=== PATIENT | male | born 1965 ===

== ENCOUNTER 2025-01-08 10:45 | Day surgery (SDC) | payer OTHER ==
[~2025-01-08] VITALS: Ht 182.9 cm; Wt 89.6 kg
[~2025-01-08 10:45] MED LIST: ALBU90OI INH; AMLO10 PO; ATOR80 PO; BUPRENORPHINE HC2 MG SL; COLCRYS0.6 M1 PO; Cyclobenzaprine5 MG PO; FARXIGA10 MG PO; Flonase 0.05% N16 GM; GABA300 PO; GLIP10 PO; GLUCOPHAGE1000 M4 PO; HYDCHL25 PO; HYDPAM50 PO; LOSA50 PO; METO100ER PO; MIRALAX17 GM PO; SILD50TA PO; TRAZ100 PO; Voltaren100 GM; ZYRTEC10 M2 PO
[2025-01-08 11:38] LABS: BASOPHILS ABSOLUTE AUTO 0.07 K/mm3 (0.00-0.23); BASOPHILS PERCENT AUTO 1 % (0-2); EOSINOPHILS ABSOLUTE AUTO 0.46 K/mm3 (0.00-0.68); EOSINOPHILS PERCENT AUTO 4 % (0-6); Hematocrit 50.8 % (37.0-53.0); Hemoglobin 17.3 g/dL (13.5-17.5); IMMATURE GRAN ABSOLUTE AUTO 0.04 K/mm3 (0.00-0.10); IMMATURE GRAN PERCENT AUTO 0 % (0-1); LYMPHOCYTES ABSOLUTE AUTO 0.91 K/mm3 (0.84-5.20); LYMPHOCYTES PERCENT AUTO 9 % (21-46); MONOCYTES ABSOLUTE AUTO 0.74 K/mm3 (0.16-1.47); MONOCYTES PERCENT AUTO 7 % (4-13); Mean Corpuscular HGB 29.9 pg (26.0-34.0); Mean Corpuscular HGB Conc 34.1 g/dL (31.5-36.5); Mean Corpuscular Volume 88 fL (80-100); Mean Platelet Volume 9.7 fL (9.1-12.4); NEUTROPHILS ABSOLUTE AUTO 8.12 K/mm3 (1.96-9.15); NEUTROPHILS PERCENT AUTO 79 % (41-73); Platelet Count 144 K/mm3 (150-400); RDW Coefficient Variation 13.6 % (11.7-14.2); RDW Standard Deviation 43.8 fL (35.1-46.3); Red Blood Cell Count 5.79 M/mm3 (4.30-5.90); White Blood Cell Count 10.34 K/mm3 (4.00-11.30)
[2025-01-08 11:53] LABS: International Normalized Ratio 1.02; Prothrombin Time Results 10.9 Sec (9.7-11.5)
[2025-01-08] MEDS ORDERED: NS 1,000 ML IV ONE ×2 (12:00→12:07)
[2025-01-08] MEDS ORDERED: Heparin Sodium 1000 Units/ML 10ML MDV ONE ×2 (12:00→12:07)
[2025-01-08 12:01] LABS: Bun/Creatinine Ratio 9.3 (12.0-20.0); Calcium, Blood 8.7 mg/dL (8.5-10.1); Creatinine, Blood 0.75 mg/dL (0.60-1.20); Potassium, Blood 3.5 mmol/L (3.5-5.5)
[2025-01-08] MEDS ORDERED: NS 250 ML IV ONE (12:01)
[2025-01-08] MEDS ORDERED: Nitroglycerin 2 MG/20 ML BTL ONE (12:01)
[2025-01-08] MEDS ORDERED: NS 100 ML IV ONE (12:01)
[2025-01-08] MEDS ORDERED: Verapamil HCL 2.5 MG/ML 2ML Injection ONE (12:03)
[2025-01-08] MEDS ORDERED: Midazolam HCl 1MG / ML 2ML Vial ONE (12:25)
[2025-01-08] MEDS ORDERED: FentaNYL Citrate 50 MCG/ML 2 ML Injection ONE ×2 (12:26→12:45)
[2025-01-08] MEDS ORDERED: Protamine Sulfate 50 MG Amp ONE (13:17)
[2025-01-08 13:36] VITALS: BP 160/102
--- NOTE | 2025-01-08 13:55 | NUR ---
PT LEFT AMA R/T [facility]. IV REMOVED. PT AMB TO BATHROOM /S DIFFICULTY. NEG BLEEDING OR SWELLING L AT POST AMB. PT VERBALIZED UNDERSTANDING OF WRITTEN AND VERBAL D/C INST. PT TAKEN OUT OF THE HRT CENTER VIA W/C.
== END 2025-01-08 16:06 | disposition home or self-care (01) ==
LOC: MHTC 10:45
PROVIDERS: Student in an Organized Health Care Education/Training Program
DX: E11.52 Type 2 diabetes mellitus with diabetic peripheral angiopathy with gangrene (principal); I70.262 Atherosclerosis of native arteries of extremities with gangrene, left leg; I70.92 Chronic total occlusion of artery of the extremities; E78.5 Hyperlipidemia, unspecified; I10 Essential (primary) hypertension; J44.9 Chronic obstructive pulmonary disease, unspecified; M06.9 Rheumatoid arthritis, unspecified; F17.210 Nicotine dependence, cigarettes, uncomplicated; F17.290 Nicotine dependence, other tobacco product, uncomplicated; Z79.84 Long term (current) use of oral hypoglycemic drugs; Z79.899 Other long term (current) drug therapy
CPT/HCPCS: 36247; 75710; 75774; 76937; 80048; 85025; 85610; 99152; 99153; C1769; C1887; C1894; J1644; J2250; J2720; J3010; J7030; J7050; Q9967

== ENCOUNTER 2025-02-13 09:54 | Day surgery (SDC) | payer OTHER ==
[~2025-02-13] VITALS: Ht 182.9 cm; Wt 91.0 kg
[2025-02-13] VITALS (8 sets, daily range): BP systolic 124–183; BP diastolic 80–118
[~2025-02-13 09:54] MED LIST changes: -Voltaren100 GM; +Voltaren100 GM TD
[2025-02-13] MEDS ORDERED: AMOCLA875 PO (10:36)
[2025-02-13] MEDS ORDERED: CIPR750 PO (10:36)
[2025-02-13] MEDS ORDERED: NS 1,000 ML IV ONE ×2 (10:39→12:13)
[2025-02-13] MEDS ORDERED: FentaNYL Citrate 50 MCG/ML 2 ML Injection ONE (10:41)
[2025-02-13] MEDS ORDERED: Lidocaine HCl 1% 20 ML MDV ONE (10:45)
[2025-02-13] MEDS ORDERED: NS 2,000 ML IV ONE (10:54)
[2025-02-13] MEDS ORDERED: NS 250 ML IV ONE (10:54)
[2025-02-13] MEDS ORDERED: Nitroglycerin 2 MG/20 ML BTL ONE (10:54)
[2025-02-13] MEDS ORDERED: Heparin Sodium 1000 Units/ML 10ML MDV ONE ×3 (10:54→12:24)
[2025-02-13] MEDS ORDERED: NS 100 ML IV ONE ×2 (10:57→12:57)
[2025-02-13 11:07] LABS: Hematocrit 47.3 % (37.0-53.0); Hemoglobin 15.6 g/dL (13.5-17.5); Mean Corpuscular Volume 88 fL (80-100); Mean Platelet Volume 9.4 fL (9.1-12.4); Platelet Count 191 K/mm3 (150-400); RDW Coefficient Variation 13.6 % (11.7-14.2); RDW Standard Deviation 43.8 fL (35.1-46.3); Red Blood Cell Count 5.38 M/mm3 (4.30-5.90)
[2025-02-13 11:33] LABS: Bun/Creatinine Ratio 10.8 (12.0-20.0); Calcium, Blood 9.3 mg/dL (8.5-10.1); Creatinine, Blood 0.83 mg/dL (0.60-1.20); Potassium, Blood 3.8 mmol/L (3.5-5.5)
[2025-02-13 11:36] LABS: International Normalized Ratio 1.07; Prothrombin Time Results 11.4 Sec (9.7-11.5)
[2025-02-13] MEDS ORDERED: propofoL 50 ML IV ONE (12:24)
[2025-02-13] MEDS ORDERED: Protamine Sulfate 50 MG Amp ONE (13:16)
[2025-02-13] MEDS ORDERED: Aspirin 325 MG Tab ONE (13:21)
[2025-02-13] MEDS ORDERED: Clopidogrel Bisulfate 300 MG TABLET ONE (13:21)
--- NOTE | 2025-02-13 13:41 | NUR ---
PT ARRIVES BACK FROM LAB, SLEEPING, RR EVEN AND UNLABORED. VSS UPON ARRIVAL TO UNIT.REPORT FROM ANESTHESIA. PT. RIGHT GROIN ASSESSED, SOFT NO HEMATOMA AT THIS TIME. MYNX IN PLACE. PT ALSO HAS LFT PT SITE, NO OOZING NO HEMATOMA.
--- NOTE | 2025-02-13 14:00 | NUR ---
PT MORE ALERT AT THIS TIME, REMAINS SUPINE IN BED. NEEDS FREQUENT REMINDING TO KEEP HEAD DOWN AND TO NOT BEND LEGS.PT. S/O TO BEDSIDE. PT. FOOT WARM TO TOUCH, DOPPLER PULSES NOTED. PT S/O UPDATED ON PROCEDURE. PT. RIGHT GROIN SITE REMAINS UNCHANGED FROM INTITAL ASSESSMENT. PT. PRESCRIPTIONS CALLED IN TO [facility] IN [place]. SPOKE TO PT AND S/O OF IMPORTANCE OF TAKING THE MEDICATIONS SO STENT DOES NOT OCCLUDE. BOTH VERBALIZED UNDERSTANDING.
--- NOTE | 2025-02-13 15:34 | NUR ---
DR. GARNER IN TO TALK WITH PT. PT HOB ELEVATED 30 DEGREES. FOOD AND BEVERAGES PROVIDED PER PT. REQUEST. PT. VSS AT THIS TIME. RIGHT GROIN SITE WNL, UNCHANGED FROM INTITAL ASSESSMENT. LEFT PT SITE WNL WELL.
--- NOTE | 2025-02-13 15:42 | NUR ---
ADDITIONAL FOOD PROVIDED PER PT REQUEST. 81MG OF ASPIRIN GIVEN WELL 300MG PLAVIX PER DR. ORDER. PT REPORTS PAIN IS LESS SEVERE TO LEG THAN PRIOR TO PROCEDURE.
--- NOTE | 2025-02-13 15:55 | NUR ---
PT UP TO BATHROOM TO VOID. ABLE TO VOID WITH OUT DIFFICULTY. PT AMBULATING AROUND RECOVERY ROOM. PT REPORTS PAIN IS REDUCED TO LEG. TOLERATING WELL. RIGHT GROIN WNL, UNCHAMGED FROM INTIAL ASSESSMENT. PT TO LEFT PT WNL WELL.
[2025-02-13] MEDS ORDERED: Propofol 10mg/ml 20 ml Vial (Procedural) IV ONE (16:03)
[2025-02-13] MEDS ORDERED: Midazolam HCl 1MG / ML 2ML Vial IV ONE (16:03)
--- NOTE | 2025-02-13 16:14 | NUR ---
Pt discharge inst reviewed in detail. pt verbalized understanding. pt. s/o to drive pt home.IV removed, prior to discharge, catheter intact. pt. vss upon discharge. all belongings returned to pt. taken via wheel chair to exit. pt s/o picked pt up.
== END 2025-02-13 16:22 | disposition home or self-care (01) ==
LOC: MHTC 09:54
PROVIDERS: Student in an Organized Health Care Education/Training Program
DX: E11.51 Type 2 diabetes mellitus with diabetic peripheral angiopathy without gangrene (principal); E78.5 Hyperlipidemia, unspecified; I10 Essential (primary) hypertension; J44.9 Chronic obstructive pulmonary disease, unspecified; F17.210 Nicotine dependence, cigarettes, uncomplicated; F12.99 Cannabis use, unspecified with unspecified cannabis-induced disorder; Z79.899 Other long term (current) drug therapy; Z79.84 Long term (current) use of oral hypoglycemic drugs
CPT/HCPCS: 36200; 36247; 37226; 37252; 75625; 75716; 75774; 76937; 80048; 85027; 85610; 93005; 93010; A9270; C1725; C1753; C1760; C1769; C1876; C1887; C1894; C2623; J1644; J2250; J2704; J2720; J3010; J7030; J7050; Q9967